=== PATIENT | male | born 1970 | race Caucasian/White ===

== ENCOUNTER 2016-08-26 19:11 | Emergency (ER) | payer OTHER ==
[~2016-08-26] VITALS: Ht 188 cm; Wt 95.3 kg
[2016-08-26] MEDS ORDERED: VENTOLIN HFA18 GM IH (22:39)
[2016-08-26] MEDS ORDERED: HYCODAN SYRUP480 ML PO (22:39)
[2016-08-26] MEDS ORDERED: MEDROL DOSEPAK4 MG PO (22:39)
[2016-08-26 23:05] VITALS: BP 136/96
== END 2016-08-26 23:07 | disposition home or self-care (01) ==
LOC: EME 19:11
DX: M54.5 Low back pain (principal); R05 Cough; R07.81 Pleurodynia; F17.200 Nicotine dependence, unspecified, uncomplicated
CPT/HCPCS: 71020; 99281; 99283; J7512